=== PATIENT | male | born 1945 | race Caucasian/White ===

== ENCOUNTER → 2018-05-04 13:30 | Outpatient (CLI) | payer MEDICARE, OTHER, SELFPAY ==
[2018-05-07 16:55] LABS: PSA, Free 0.42 ng/mL; PSA, Free % 9.5 % (.); PSA, Total Ultrasensitive 4.4 ng/mL (0.0-4.0)
== END ==
PROVIDERS: Family Provider Internal Medicine; PCP Internal Medicine; Visit Provider Nurse Practitioner Adult Health
DX: R97.20 Elevated prostate specific antigen [PSA] (principal)
CPT/HCPCS: 36415; 84153; 84154

== ENCOUNTER → 2019-02-25 11:55 | Outpatient (CLI) | payer MEDICARE, OTHER, SELFPAY ==
[2019-02-25 12:21] LABS: Bacteria 0 SEEN /hpf (None Seen); Mucous, Urine 0 SEEN /hpf (<or=2+); Red Blood Cells-Urine 0 SEEN /hpf (0-5); White Blood Cells 0 SEEN /hpf (0-5)
[2019-02-25 12:36] LABS: Color, Urine Straw (Yellow); Glucose, Dipstick 250 mg/dl (Normal); Ketone-Dipstick Negative (Negative); Leukocyte Esterase-Dipstick Negative /ul (Negative); Nitrite-Dipstick Negative (Negative); Occult Blood-Urine Negative /ul (Negative); Protein-Dipstick Negative (Negative); Specific Gravity, Urine 1.005 (1.002-1.030); Urine Bilirubin Dipstick Negative (Negative); Urine Clarity Sl. Cloudy (Clear); Urine Urobilinogen Normal (Normal)
[2019-02-25 12:45] LABS: Absolute Lymphocyte Count 2.08 X10^3/ul (0.83-4.51); Absolute Neutrophil Count 3.5 X10^3/uL (2.0-7.7); Basophil# 0.07 X10^3/uL; Basophil% 1.1 % (0-1); Eosinophil# 0.16 X10^3/uL; Eosinophils% 2.5 % (0-5); Hematocrit 44.5 % (40-54); Hemoglobin 14.5 g/dl (13.0-16.5); Lymphocyte # 2.08 X10^3/ul (4.0); Lymphocyte % 32.3 % (19-41); Mean Corp Hgb Conc 32.6 g/gl (32-36); Mean Corpuscular Hgb 31.4 pg (27.0-32.0); Mean Corpuscular Volume 96.3 fL (80-94); Mean Platelet Vol. 10.1 fl (6.2-12.0); Monocyte# 0.62 X10^3/uL; Monocyte% 9.6 % (0-10); Neutrophil # 3.49 X10^3/uL (2.7-7.7); Neutrophil % 54.3 % (47-70); Platelet Count 247 K/mm3 (150-450); RBC Distribution Width CV 13.1 % (11.6-14.6); RBC Distribution Width SD 45.4 fl (35.1-43.9); Red Blood Count 4.62 M/mm3 (4.6-6.2); White Blood Count 6.4 K/mm3 (4.4-11.0)
[2019-02-25 12:49] LABS: POSITIVE COUNT NO; POSITIVE DIFFERENTIAL NO; POSITIVE MORPHOLOGY NO
[2019-02-25 12:56] LABS: Squamous Epithelial Cells - UA 0-5 SEEN /hpf (0-5)
[2019-02-25 12:58] LABS: Microalbumin,Random Urine 7.5 mg/L (NO RANGE EST.); Microalbumin:Creatinine Ratio 33.2 mg/g CRE (<30 mg/g CRE)
[2019-02-25 13:17] LABS: ALB/GLOB Ratio 1.1 RATIO (0.9-2.4); AST(SGOT) 20 U/L (15-37); Alanine Aminotransfer ALT/SGPT 27 U/L (16-61); Albumin, Serum 3.9 g/dL (3.2-5.0); Alkaline Phosphatase 35 U/L (45-117); Anion Gap 6 (5-15); BUN 24 mg/dL (7-18); BUN/Creat Ratio 20.2 RATIO (10-20); Calcium,Total 8.7 mg/dL (8.5-10.1); Chloride 101 mmol/L (98-107); Creatinine, Serum 1.19 mg/dL (0.70-1.30); EST Glomerular Filtration Rate 63 mL/min (>60); Est Glom Filt Rate - Afr Amer 77 mL/min (>60); Globulin 3.4 g/dL (2.2-4.2); Glucose 93 mg/dL (74-106); PSA,Total - Annual Screen 6.32 ng/mL (0.00-4.00); Potassium 4.2 mmol/L (3.5-5.1); Protein, Total 7.3 g/dL (6.4-8.2); Sodium Level 136 mmol/L (136-145); Thyroid Stim Hormone (TSH) 2.93 uIU/mL (0.358-3.74)
[2019-02-26 14:35] LABS: PSA, Free 0.49 ng/mL; PSA, Free % 8.2 % (.)
[2019-02-26 16:06] LABS: CHOLESTEROL TOTAL 222 mg/dL (100-199); HDL-C 49 mg/dL (>39); HDL-P TOTAL 44.4 umol/L (>=30.5); SMALL LDL-P 855 nmol/L (<=527); TRIGLYCERIDES 189 mg/dL (0-149)
[2019-02-27 09:52] LABS: INSULIN RESISTANCE SCORE 66 (<=45); LDL SIZE 20.3 nm (>20.5); LDL-C 135 mg/dL (0-99); LDL-P 1650 nmol/L (<1000)
== END ==
PROVIDERS: Family Provider Internal Medicine; PCP Internal Medicine; Referring Provider Internal Medicine; Visit Provider Internal Medicine
DX: E11.9 Type 2 diabetes mellitus without complications (principal); R97.20 Elevated prostate specific antigen [PSA]; Z12.5 Encounter for screening for malignant neoplasm of prostate
CPT/HCPCS: 36415; 80053; 80061; 81001; 82043; 82570; 83704; 84153; 84154; 84443; 85025; G0103

== ENCOUNTER → 2019-05-23 15:06 | Outpatient (CLI) | payer MEDICARE, OTHER, SELFPAY ==
--- NOTE | 2019-05-23 | IMM_PTH ---
PATIENT: HAY JOHNSON LOC: [facility] U#:[id number] AGE/SX: 80/M ROOM: RE05/23/[address]: Dr. Cesar Hicks MD : 1945 BED: DIS: SPEC #: [id number] RECD: 05/25/19 12:54 STATUS: CASH REQ #: [id number] RON: 05/23/19 00:[address]: Cesar Hicks DEPT: IMMUNOHISTOCHEMISTRY RECD BY: Catarina Mcduffie ENTERED: 05/25/19 12:56 SP TYPE: IMMUNO OTHR DR: Dr. Amanda Cardoza DO Tissues: A - PROSTATE RIGHT B - PROSTATE RIGHT C - PROSTATE RIGHT E - PROSTATE LEFT F - PROSTATE LEFT Procedures: 34BE12 (add) P40 (add) 34BE12 (initial) PHYSICIAN & INSTITUTION [place] [address] SPECIMEN INFORMATION: Tissue Source: A - Right apex, B - Right mid, C - Right base, E - Left mid, F - Left base Clinical Info: Elevated PSA Specimen Number: [id number] A, B, C, E & F CPT code: 99022, 55261 x9 METHODOLOGY: Deparaffinized sections of prefer/formalin-fixed tissue or PAP/DQ stained slides are incubated with monoclonal/polyclonal antibodies/oligonucleotide probes. Localization is made via biotin free immunoperoxidase method. Appropriate controls are performed and reacted as expected. Results on target cell population are indicated in the following table: RESULTS: ANTIBODY / CLONE RESULT Block A P40 (BC28) positive 34BE12 (34BE12) positive Block B P40 (BC28) negative 34BE12 (34BE12) negative Block C P40 (BC28) negative 34BE12 (34BE12) negaitive Block E P40 (BC28) positive 34BE12 (34BE12) positive Block F P40 (BC28) negative 34BE12 (34BE12) negative These tests were developed and their performance characteristics determined by [facility]. They may not have been cleared or approved by the U.S. Food and Drug Administration. The FDA has determined that such clearance or approval is not necessary. INTERPRETATION: A. Right prostate, apex, core biopsy: Benign prostatic tissue. B. Right prostate, mid, core biopsy: Adenocarcinoma. C. Right prostate, base, core biopsy: Adenocarcinoma. E. Left prostate, mid, core biopsy: Focal high-grade prostatic intraepithelial neoplasia (HGPIN). F. Left prostate, base, core biopsy: Adenocarcinoma. AM:andrzej 05/27/19
--- NOTE | 2019-05-23 08:00 | PROSBIL_PTH ---
PATIENT: HAY JOHNSON LOC: [facility] U#:[id number] AGE/SX: 80/M ROOM: RE05/23/[address]: Dr. Cesar Hicks MD : 1945 BED: DIS: SPEC #: [id number] RECD: 05/23/19 14:54 STATUS: CASH KRISSY #: [id number] RON: 05/23/19 08:[address]: Cesar Hicks DEPT: SURGICAL PATHOLOGY RECD BY: Venkatesh Villanueva ENTERED: 05/24/19 09:44 SP TYPE: PROST BX FREDDIE DR: Dr. Amanda Cardoza DO Tissues: A - PROSTATE RIGHT B - PROSTATE RIGHT C - PROSTATE RIGHT D - PROSTATE LEFT E - PROSTATE LEFT F - PROSTATE LEFT Procedures: PROSTATE BX HEADER OPERATION: Prostate biopsy PRE-OP DIAGNOSIS: Elevated PSA TISSUE SUBMITTED: A - Right apex, B - Right mid, C - Right base, D - Left apex, E - Left mid, F - Left base MICROSCOPIC DIAGNOSIS A. Right prostate, apex, core biopsy: Benign prostatic tissue. B. Right prostate, mid, core biopsy: Adenocarcinoma: [place] grade: 6 (3+3) Cores involved: 2 out of 2 Tissue involved: 5% Greatest tumor length: 1.5 mm Perineural invasion: Positive C. Right prostate, base, core biopsy: Adenocarcinoma: [place] grade: 7 (3+4) Cores involved: 2 out of 2 Tissue involved: 35% Greatest tumor length: 6 mm (discontinuous) Perineural invasion: Positive D. Left prostate, apex, core biopsy: Mild chronic inflammation. E. Left prostate, mid, core biopsy: Focal high-grade prostatic intraepithelial neoplasia (HGPIN). F. Left prostate, base, core biopsy: Adenocarcinoma: [place] grade: 7 (3+4) Cores involved: 2 out of 2 Tissue involved: 45% Greatest tumor length: 7 mm (discontinuous) Perineural invasion: Positive AM:andrzej 05/25/19 COMMENT A, B, C, E & F - Immunohistochemistry ([id number]) supports the above diagnosis. Case has been reviewed in consultation with Dr. Hu who concurs with the above diagnosis. IDC:SJ MICROSCOPIC DESCRIPTION Slides are reviewed. GROSS DESCRIPTION A - Received is one container designated prostate, right apex. The specimen consists of one elongated fragment of light valle-white soft tissue measuring 1.3 cm in length and 0.1 cm in diameter. The specimen is totally submitted in one cassette. B - Received is one container designated prostate, right mid. The specimen consists of two elongated fragments of light vlale-white soft tissue each measuring 1.3 cm in length and 0.1 cm in diameter. The specimen is totally submitted in one cassette. C - Received is one container designated prostate, right base. The specimen consists of two elongated fragments of light valle-white soft tissue measuring 1.5 and 1.7 cm in length and 0.1 cm in diameter. The specimen is totally submitted in one cassette. D - Received is one container designated prostate, left apex. The specimen consists of one elongated fragment of light valle-white soft tissue measuring 1 cm in length and 0.1 cm in diameter. The specimen is totally submitted in one cassette. E - Received is one container designated prostate, left mid. The specimen consists of two elongated fragments of light valle-white soft tissue each measuring 0.5 cm in length and 0.1 cm in diameter. The specimen is totally submitted in one cassette. F - Received is one container designated prostate, left base. The specimen consists of two elongated fragments of light valle-white soft tissue measuring 1 and 1.5 cm in length and 0.1 cm in diameter. The specimen is totally submitted in one cassette. / SJ:rg 05/24/19 TC:0 CPT: G0146
== END ==
PROVIDERS: Family Provider Internal Medicine; PCP Internal Medicine; Referring Provider Urology; Visit Provider Urology
DX: R97.20 Elevated prostate specific antigen [PSA] (principal)
CPT/HCPCS: 88305; 88341; 88342; G0416

== ENCOUNTER 2019-08-05 05:46 | Day surgery (SDC) | payer MEDICARE, OTHER, SELFPAY ==
[2019-06-28 15:08] VITALS: BMI 28.3
[2019-08-05 06:12] VITALS: BP 121/50; PULSE 67; RESP 16; TEMP 36.4; O2SAT 99; BMI 27.1
[2019-08-05] MEDS: Lactated Ringers 1,000 ML 100 ML IV (06:30)
[2019-08-05] MEDS: Cefazolin 2 GM in 0.9% Normal Saline 100 ML IV (07:27)
[2019-08-05 08:14] VITALS: BP 119/74; BP 121/50; PULSE 78; RESP 16; TEMP 36.8; O2SAT 92
--- NOTE | 2019-08-05 08:15 | PCM.DC.URO ---
Discharge Diet: Light diet - advance as tolerated Discharge Activity: Return to Normal Activity Call your doctor if your incision/area has: Continuous Slow Oozing, Sudden Increased Bleeding, Increased Pain/ Swelling, Increased Redness Call your doctor if you observe: Fever of 101 or Higher Allergies/Adverse Reactions: Allergies No Known Allergies Allergy (Unverified 08/05/19 06:11) Medications to take at Discharge Amlodipine/Valsartan [Exforge 10-320 MG Tablet] 1 tab PO DAILY 06/22/19 Calcium 600-Vit D3 200 Tablet 1 tab PO DAILY 06/22/19 Complete Multi Tablet 1 tab PO DAILY 06/22/19 [place]-3 Fatty Acids/Fish Oil [Fish Oil 1,000 mg Capsule] 1,000 mg PO DAILY 06/22/19 Ubidecarenone [Coenzyme Q10] 100 mg PO DAILY 06/22/19 Primary Care Physician: Amanda Cardoza DO [Primary Care Provider] - Test Results: Test results from this visit will be discussed in further detail at your follow-up appointment, if applicable. Please Follow Up With: Cesar Hicks MD
--- NOTE | 2019-08-05 08:16 | PCM.OPRPT ---
Report of Operation Date of Procedure: 08/05/19 Pre-Operative Diagnosis: Prostate cancer Post-Operative Diagnosis: The same Surgery/Procedure Performed:: Transrectal ultrasound-guided placement of fiducial gold markers x3, transrectal ultrasound-guided placement of spacer organ at risk hydrogel. Description of Surgical Findings:: 74-year-old male with prostate cancer who is elected to undergo radiation therapy, radiation oncologist has recommended that I place markers for radiation treatment and planning and also placement of a spacer gel between the prostate and the rectum. We talked to the patient regarding the procedure how would stun expectations afterwards and expected outcomes and complications were discussed. 74-year-old male was taken back to the operating room after smooth induction of anesthesia he was placed in supine position he was then placed in dorsolithotomy position, the penis perineum and perineal area were prepped and draped in usual sterile fashion, I then placed a biplanar ultrasound probe into the rectum and performed ultrasonography of the prostate, I then prepared the first marker and advanced into the perineum in the right lateral edge of the prostate and the marker was deployed, this was done using ultrasound guidance using bipolar planar and transverse ultrasound. I then placed tumor markers mid prostate and left base of the prostate once 3 markers were placed then we performed ultrasonography looking at the prostate again identified the prostate anatomy identified tenotomies fascia identified the rectum. I then prepared the spacer hydrogel solution in the back table following the ambulance driver paramedic's instructions. We then used the needle with the bevel up, advancing into the space of the fascia below the prostate above the rectum once this was located I injected up off of normal saline and had a nice distention. This confirm my location between the rectum and the prostate we then went to sagittal view and then the spacer gel was injected between the spacer rectum and the prostate this was injected slowly over the course of 15 seconds had very nice separation between the prostate and the rectum with this injection. I then pulled out the whole needle and the peritoneum was then cleaned the ultrasound probe was removed and the patient was taken back to PACU in good condition he will then proceed with radiation therapy as planned. Type of Anesthesia:: General - Admit VTE Documentation VTE Present on Admission: No VTE Mechan Device Prophylaxis: SCD's
[2019-08-05 08:25] VITALS: BP 121/50; BP 134/73; PULSE 67; RESP 16; O2SAT 92
[2019-08-05 08:30] VITALS: BP 121/50; BP 135/66; PULSE 69; RESP 16; O2SAT 92
[2019-08-05 08:40] VITALS: BP 121/50; BP 134/71; PULSE 64; RESP 16; TEMP 37; O2SAT 93
[2019-08-05] MEDS: Lactated Ringers 1,000 ML 75 ML IV (08:41)
[2019-08-05 09:34] VITALS: BP 119/62; BP 121/50; PULSE 54; RESP 16; TEMP 36.3; O2SAT 94
== END 2019-08-05 09:47 | disposition home or self-care (01) ==
LOC: SDC 05:46 → AC 05:48
PROVIDERS: Family Provider Internal Medicine; PCP Internal Medicine; Referring Provider Urology; Visit Provider Urology
PROC: (CPT 55874; principal; 2019-08-05 07:15)
DX: C61 Malignant neoplasm of prostate (principal); I10 Essential (primary) hypertension; R97.20 Elevated prostate specific antigen [PSA]; Z87.891 Personal history of nicotine dependence
CPT/HCPCS: 10035; 10036 ×2; J7120; J2405

== ENCOUNTER → 2019-08-31 15:50 | Outpatient (CLI) | payer MEDICARE, OTHER, SELFPAY ==
[2019-06-28 15:08] VITALS: BMI 28.3
[2019-08-05 06:12] VITALS: BMI 27.1
--- NOTE | 2019-08-31 16:01 | MRI_ITS ---
STUDY: MR PELVIS WITHOUT CONTRAST REASON FOR EXAM: Male, 74 years old. Prostate cancer, planning for radiation therapy TECHNIQUE: Standardized fat and water weighted pulse sequences were obtained in all 3 orthogonal planes. COMPARISON: Radiation planning CT from the same day. FINDINGS: Normal urinary bladder. Normal visualized small intestine. Normal visualized colon. Normal visualized pelvic arteries. Normal osseous structures. No bone marrow edema. Normal abdominal wall. Trace amount of fluid in the dependent portion of the pelvis. Small seminal vesicle cysts are identified. Oval-shaped area of increased T2 signal intensity in the right side of the prostate gland (transitional zone) likely related to prior biopsy. Punctate signal dropout of the prostate gland correlates to iatrogenic metallic foci evident on CT (same day). No periprostatic adenopathy/mass. No pelvic sidewall adenopathy. MRI/Pelvis (Routine) IMPRESSION: 1. No pelvic sidewall adenopathy/mass. No bone marrow edema. 2. Minimal pelvic free fluid. 3. Probable postbiopsy changes of the right side of the prostate gland. Electronically Signed: Lokesh Casanova MD ([place]) at 12:26 EDT , Service support ,
== END ==
PROVIDERS: Family Provider Internal Medicine; PCP Internal Medicine; Referring Provider Student in an Organized Health Care Education/Training Program; Visit Provider Student in an Organized Health Care Education/Training Program
DX: C61 Malignant neoplasm of prostate (principal)
CPT/HCPCS: 72195; 77014; 77290

== ENCOUNTER → 2019-10-24 10:24 | Outpatient (CLI) | payer MEDICARE, OTHER, SELFPAY ==
[2019-06-28 15:08] VITALS: BMI 28.3
[2019-10-06 09:52] VITALS: BMI 27.1
--- NOTE | 2019-10-24 15:26 | MRI_ITS ---
STUDY: MRA NECK WITH AND WITHOUT CONTRAST REASON FOR EXAM: Male, 74 years old. TECHNIQUE: 3-D mgzc-vy-lllksw (TOF) imaging was performed in an 1.5 T MRI scanner. IV Dotarem 15 was administered for the contrast enhanced images. COMPARISON: None. FINDINGS: The aorta has a normal branching pattern. Right brachiocephalic, right subclavian, right common carotid, left common carotid and left subclavian arteries are patent. Right vertebral artery is dominant and arises from the subclavian artery and is patent throughout. The origin of the left vertebral artery is not seen. Left vertebral artery is smaller but patent throughout. Intradural vertebral arteries are patent with the right dominant and left smaller. Bilateral internal and external carotid arteries are patent. There is no cervical aneurysm. MRI/MRA Neck WITH and W/O Contrast IMPRESSION: Normal cervical arteries. Electronically Signed: Brett Menchaca, at 17:02 EST Tel , Service support ,
--- NOTE | 2019-10-24 15:26 | MRI_ITS ---
STUDY: MRA OF THE HEAD WITHOUT CONTRAST REASON FOR EXAM: Male, 74 years old. Brain aneurysm screening TECHNIQUE: 3-D riwr-qm-opmljw (TOF) imaging was performed with MIPs. The study was performed unenhanced. COMPARISON: None. FINDINGS: Bilateral base of skull carotids, bifurcations, anterior and middle cerebral arteries and proximal branches are patent. Posterior communicating arteries are not well seen Posterior cerebral arteries and superior cerebellar arteries and proximal branches are patent. Vertebral arteries, basilar arteries are patent. MRI/MRA Head ONLY without Contrast IMPRESSION: 1. Unremarkable [place] and proximal branches. Electronically Signed: Brett Menchaca, at 16:41 EST Tel , Service support ,
== END ==
PROVIDERS: Family Provider Internal Medicine; PCP Internal Medicine; Referring Provider Internal Medicine; Visit Provider Internal Medicine
DX: Z82.49 Family history of ischemic heart disease and other diseases of the circulatory system (principal)
CPT/HCPCS: 70544; 70549; A9575

== ENCOUNTER → 2019-10-24 10:28 | Outpatient (CLI) | payer MEDICARE, OTHER, SELFPAY ==
[2019-06-28 15:08] VITALS: BMI 28.3
[2019-10-06 09:52] VITALS: BMI 27.1
[2019-10-24 10:39] LABS: Bacteria 0 SEEN /hpf (None Seen); Mucous, Urine 0 SEEN /hpf (<or=2+); Red Blood Cells-Urine 0 SEEN /hpf (0-5); White Blood Cells 0 SEEN /hpf (0-5)
[2019-10-24 11:18] LABS: Color, Urine Yellow (Yellow); Glucose, Dipstick 250 mg/dl (Normal); Ketone-Dipstick Negative (Negative); Leukocyte Esterase-Dipstick Negative /ul (Negative); Nitrite-Dipstick Negative (Negative); Occult Blood-Urine Negative /ul (Negative); Protein-Dipstick Negative (Negative); Urine Bilirubin Dipstick Negative (Negative); Urine Clarity Clear (Clear); Urine Urobilinogen Normal (Normal)
[2019-10-24 11:20] LABS: Absolute Lymphocyte Count 0.99 X10^3/uL (0.83-4.51); Absolute Neutrophil Count 2.7 X10^3/uL (2.0-7.7); Basophil# 0.05 X10^3/uL; Basophil% 1.1 % (0-1); Eosinophil# 0.24 X10^3/uL; Eosinophils% 5.1 % (0-5); Hematocrit 40.1 % (40-54); Hemoglobin 12.9 g/dL (13.0-16.5); Lymphocyte # 0.99 X10^3/ul (4.0); Lymphocyte % 21.2 % (19-41); Mean Corp Hgb Conc 32.2 g/dL (32-36); Mean Corpuscular Hgb 31.5 pg (27.0-32.0); Mean Corpuscular Volume 97.8 fL (80-94); Mean Platelet Vol. 9.7 fl (6.2-12.0); Monocyte# 0.69 X10^3/uL; Monocyte% 14.8 % (0-10); NRBC Flagged by Analyzer 0 % (0-5); Neutrophil # 2.69 X10^3/uL (2.7-7.7); Neutrophil % 57.6 % (47-70); Platelet Count 227 K/mm3 (150-450); RBC Distribution Width CV 13.7 % (11.6-14.6); RBC Distribution Width SD 49.7 fl (35.1-43.9); White Blood Count 4.7 K/mm3 (4.4-11.0)
[2019-10-24 11:24] LABS: Squamous Epithelial Cells - UA 0-5 SEEN /hpf (0-5)
[2019-10-24 11:45] LABS: Microalbumin,Random Urine 6.4 mg/L (NO RANGE EST.); Microalbumin:Creatinine Ratio 8.8 mg/g CRE (<30 mg/g CRE)
[2019-10-24 11:54] LABS: ALB/GLOB Ratio 1.1 RATIO (0.9-2.4); AST(SGOT) 24 U/L (15-37); Alanine Aminotransfer ALT/SGPT 28 U/L (16-61); Albumin, Serum 3.6 g/dL (3.2-5.0); Alkaline Phosphatase 41 U/L (45-117); Anion Gap 7 (5-15); BUN 21 mg/dL (7-18); BUN/Creat Ratio 18.8 RATIO (10-20); Calcium,Total 8.9 mg/dL (8.5-10.1); Chloride 104 mmol/L (98-107); Creatinine, Serum 1.12 mg/dL (0.70-1.30); EST Glomerular Filtration Rate 68 mL/min (>60); Est Glom Filt Rate - Afr Amer 82 mL/min (>60); Globulin 3.3 g/dL (2.2-4.2); Glucose 102 mg/dL (74-106); Potassium 4.3 mmol/L (3.5-5.1); Protein, Total 6.9 g/dL (6.4-8.2); Sodium Level 139 mmol/L (136-145); Thyroid Stim Hormone (TSH) 3.01 uIU/mL (0.358-3.74)
[2019-10-25 14:07] LABS: CHOLESTEROL TOTAL 247 mg/dL (100-199); HDL-C 60 mg/dL (>39); HDL-P TOTAL 47.4 umol/L (>=30.5); SMALL LDL-P 701 nmol/L (<=527); TRIGLYCERIDES 205 mg/dL (0-149)
[2019-10-26 13:50] LABS: INSULIN RESISTANCE SCORE 60 (<=45); LDL SIZE 20.8 nm (>20.5); LDL-C 146 mg/dL (0-99); LDL-P 1582 nmol/L (<1000)
== END ==
PROVIDERS: Family Provider Internal Medicine; PCP Internal Medicine; Referring Provider Internal Medicine; Visit Provider Internal Medicine
DX: E11.9 Type 2 diabetes mellitus without complications (principal); E78.00 Pure hypercholesterolemia, unspecified
CPT/HCPCS: 36415; 80053; 80061; 81001; 82043; 82570; 83704; 84443; 85025

== ENCOUNTER → 2020-04-17 13:29 | Outpatient (CLI) | payer MEDICARE, OTHER, SELFPAY ==
[2019-06-28 15:08] VITALS: BMI 28.3
[2019-10-06 09:52] VITALS: BMI 27.1
[2020-04-17 14:23] LABS: PSA,Total- Diagnostic 0.06 ng/mL (0.0-4.0)
== END ==
PROVIDERS: PCP Internal Medicine; Referring Provider Urology; Visit Provider Urology
DX: C61 Malignant neoplasm of prostate (principal)
CPT/HCPCS: 36415; 84153

== ENCOUNTER → 2020-09-19 12:19 | Outpatient (CLI) | payer MEDICARE, OTHER, SELFPAY ==
[2019-06-28 15:08] VITALS: BMI 28.3
[2019-10-06 09:52] VITALS: BMI 27.1
[2020-09-19 12:26] LABS: Bacteria 0 SEEN /hpf (None Seen); Mucous, Urine 0 SEEN /hpf (<or=2+); Red Blood Cells-Urine 0 SEEN /hpf (0-5); Squamous Epithelial Cells - UA 0 SEEN /hpf (0-5); White Blood Cells 0 SEEN /hpf (0-5)
[2020-09-19 13:34] LABS: Color, Urine Straw (Yellow); Glucose, Dipstick 250 mg/dl (Normal); Ketone-Dipstick Negative (Negative); Leukocyte Esterase-Dipstick Negative /ul (Negative); Nitrite-Dipstick Negative (Negative); Occult Blood-Urine Negative /ul (Negative); Protein-Dipstick Negative (Negative); Specific Gravity, Urine 1.005 (1.002-1.030); Urine Bilirubin Dipstick Negative (Negative); Urine Clarity Clear (Clear); Urine Urobilinogen Normal (Normal)
[2020-09-19 13:43] LABS: Absolute Lymphocyte Count 1.32 X10^3/uL (0.83-4.51); Absolute Neutrophil Count 2.5 X10^3/uL (2.0-7.7); Basophil# 0.06 X10^3/uL; Basophil% 1.3 % (0-1); Eosinophil# 0.15 X10^3/uL; Eosinophils% 3.2 % (0-5); Hematocrit 41.2 % (40-54); Hemoglobin 13.1 g/dL (13.0-16.5); Lymphocyte # 1.32 X10^3/ul (4.0); Lymphocyte % 28.2 % (19-41); Mean Corp Hgb Conc 31.8 g/dL (32-36); Mean Corpuscular Hgb 30.8 pg (27.0-32.0); Mean Corpuscular Volume 96.7 fL (80-94); Mean Platelet Vol. 9.7 fl (6.2-12.0); Monocyte# 0.62 X10^3/uL; Monocyte% 13.2 % (0-10); NRBC Flagged by Analyzer 0 % (0-5); Neutrophil # 2.53 X10^3/uL (2.7-7.7); Neutrophil % 54.1 % (47-70); Platelet Count 263 K/mm3 (150-450); RBC Distribution Width CV 13.4 % (11.6-14.6); RBC Distribution Width SD 47.8 fl (35.1-43.9); Red Blood Count 4.26 M/mm3 (4.6-6.2); White Blood Count 4.7 K/mm3 (4.4-11.0)
[2020-09-19 14:02] LABS: Microalbumin,Random Urine < 5.0 mg/L (NO RANGE EST.)
[2020-09-19 14:06] LABS: Hemoglobin A1c 5.8 % (3.8-5.6)
[2020-09-19 14:18] LABS: AST(SGOT) 16 U/L (15-37); Alanine Aminotransfer ALT/SGPT 21 U/L (16-61); Albumin, Serum 3.7 g/dL (3.2-5.0); Alkaline Phosphatase 35 U/L (45-117); Anion Gap 4 (5-15); BUN 21 mg/dL (7-18); BUN/Creat Ratio 22.3 RATIO (10-20); Chloride 102 mmol/L (98-107); Cholesterol 204 mg/dL (200); Creatinine, Serum 0.94 mg/dL (0.70-1.30); EST Glomerular Filtration Rate 82 mL/min (>60); Est Glom Filt Rate - Afr Amer 100 mL/min (>60); Globulin 3.6 g/dL (2.2-4.2); Glucose 96 mg/dL (74-106); High Density Lipoprotein 71 mg/dL; PSA,Total- Diagnostic 0.07 ng/mL (0.0-4.0); Potassium 4.2 mmol/L (3.5-5.1); Protein, Total 7.3 g/dL (6.4-8.2); Sodium Level 137 mmol/L (136-145); Thyroid Stim Hormone (TSH) 2.73 uIU/mL (0.358-3.74); Triglycerides 86 mg/dL; Very Low Density Lipoprotein 17 mg/dL (5-40)
== END ==
PROVIDERS: PCP Internal Medicine; Referring Provider Internal Medicine; Visit Provider Internal Medicine
DX: I10 Essential (primary) hypertension (principal); E11.9 Type 2 diabetes mellitus without complications; C61 Malignant neoplasm of prostate
CPT/HCPCS: 36415; 80053; 80061; 81001; 82043; 82570; 83036; 84153; 84443; 85025

== ENCOUNTER → 2021-03-29 10:04 | Outpatient (CLI) | payer MEDICARE, OTHER, SELFPAY ==
[2019-06-28 15:08] VITALS: BMI 28.3
[2019-10-06 09:52] VITALS: BMI 27.1
[2021-03-29 10:41] LABS: Absolute Lymphocyte Count 1.25 X10^3/uL (0.83-4.51); Absolute Neutrophil Count 2.3 X10^3/uL (2.0-7.7); Basophil# 0.06 X10^3/uL; Basophil% 1.4 % (0-1); Eosinophil# 0.14 X10^3/uL; Eosinophils% 3.2 % (0-5); Hematocrit 41.3 % (40-54); Hemoglobin 12.9 g/dL (13.0-16.5); Lymphocyte # 1.25 X10^3/ul (0.83-4.51); Lymphocyte % 28.5 % (19-41); Mean Corp Hgb Conc 31.2 g/dL (32-36); Mean Corpuscular Hgb 29.9 pg (27.0-32.0); Mean Corpuscular Volume 95.8 fL (80-94); Mean Platelet Vol. 9.8 fl (6.2-12.0); Monocyte# 0.62 X10^3/uL; Monocyte% 14.1 % (0-10); NRBC Flagged by Analyzer 0 % (0-5); Neutrophil # 2.31 X10^3/uL (2.7-7.7); Neutrophil % 52.6 % (47-70); Platelet Count 262 K/mm3 (150-450); RBC Distribution Width CV 12.7 % (11.6-14.6); RBC Distribution Width SD 45.6 fl (35.1-43.9); Red Blood Count 4.31 M/mm3 (4.6-6.2); White Blood Count 4.4 K/mm3 (4.4-11.0)
[2021-03-29 11:05] LABS: Vitamin D,25 Hydroxy 48.5 ng/mL
[2021-03-29 11:29] LABS: AST(SGOT) 17 U/L (15-37); Alanine Aminotransfer ALT/SGPT 22 U/L (16-61); Albumin, Serum 3.6 g/dL (3.2-5.0); Alkaline Phosphatase 37 U/L (45-117); Anion Gap 4 (5-15); BUN 19 mg/dL (7-18); BUN/Creat Ratio 18.8 RATIO (10-20); Calcium,Total 8.9 mg/dL (8.5-10.1); Chloride 99 mmol/L (98-107); Cholesterol 213 mg/dL (200); Creatinine, Serum 1.01 mg/dL (0.70-1.30); EST Glomerular Filtration Rate 76 mL/min (>60); Est Glom Filt Rate - Afr Amer 92 mL/min (>60); Globulin 3.7 g/dL (2.2-4.2); Glucose 101 mg/dL (74-106); High Density Lipoprotein 64 mg/dL; PSA,Total- Diagnostic 0.04 ng/mL (0.0-4.0); Potassium 3.9 mmol/L (3.5-5.1); Protein, Total 7.3 g/dL (6.4-8.2); Sodium Level 135 mmol/L (136-145); Thyroid Stim Hormone (TSH) 3.39 uIU/mL (0.358-3.74); Triglycerides 140 mg/dL; Very Low Density Lipoprotein 28 mg/dL (5-40)
== END ==
PROVIDERS: PCP Internal Medicine; Referring Provider Internal Medicine; Visit Provider Internal Medicine
DX: Z01.83 Encounter for blood typing (principal); E78.00 Pure hypercholesterolemia, unspecified; Z13.29 Encounter for screening for other suspected endocrine disorder; E11.9 Type 2 diabetes mellitus without complications; C61 Malignant neoplasm of prostate; Z13.21 Encounter for screening for nutritional disorder
CPT/HCPCS: 36415; 80053; 80061; 82306; 84153; 84443; 85025; 86900; 86901

== ENCOUNTER → 2021-11-04 13:38 | Outpatient (CLI) | payer MEDICARE, OTHER, SELFPAY ==
[2019-06-28 15:08] VITALS: BMI 28.3
[2021-11-04 14:59] LABS: PSA,Total - Annual Screen 0.06 ng/mL (0.00-4.00)
== END ==
PROVIDERS: PCP Internal Medicine; Visit Provider Urology
DX: C61 Malignant neoplasm of prostate (principal)
CPT/HCPCS: 36415; 84153; G0103

== ENCOUNTER → 2022-11-05 | Outpatient (CLI) | payer MEDICARE, OTHER, SELFPAY ==
[2019-06-28 15:08] VITALS: BMI 28.3
[2022-11-05 13:59] LABS: PSA,Total - Annual Screen 0.05 ng/mL (0.00-4.00)
== END | disposition home or self-care (01) ==
LOC: LAB 13:11
PROVIDERS: PCP Internal Medicine; Referring Provider Urology; Visit Provider Urology
DX: Z12.5 Encounter for screening for malignant neoplasm of prostate (principal)
CPT/HCPCS: 36415; 84153; G0103

== ENCOUNTER → 2023-10-26 | Outpatient (CLI) | payer MEDICARE, OTHER, SELFPAY ==
[2019-06-28 15:08] VITALS: BMI 28.3
[2023-10-26 13:00] LABS: Bacteria 0 SEEN /hpf (None Seen); Mucous, Urine 0 SEEN /hpf (<or=2+); Red Blood Cells-Urine 0 SEEN /hpf (0-5); Squamous Epithelial Cells - UA 0 SEEN /hpf (0-5); White Blood Cells 0 SEEN /hpf (0-5)
[2023-10-26 13:44] LABS: Absolute Lymphocyte Count 1.73 X10^3/uL (0.83-4.51); Absolute Neutrophil Count 2.8 X10^3/uL (2.0-7.7); Basophil# 0.06 X10^3/uL; Basophil% 1.1 % (0-1); Eosinophil# 0.15 X10^3/uL; Eosinophils% 2.7 % (0-5); Hematocrit 41.6 % (40-54); Hemoglobin 13.2 g/dL (13.0-16.5); Lymphocyte # 1.73 X10^3/ul (0.83-4.51); Lymphocyte % 31.7 % (19-41); Mean Corp Hgb Conc 31.7 g/dL (32-36); Mean Corpuscular Hgb 31.3 pg (27.0-32.0); Mean Corpuscular Volume 98.6 fL (80-94); Mean Platelet Vol. 9.9 fl (6.2-12.0); Monocyte# 0.72 X10^3/uL; Monocyte% 13.2 % (0-10); NRBC Flagged by Analyzer 0 % (0-5); Neutrophil # 2.78 X10^3/uL (2.7-7.7); Neutrophil % 50.9 % (47-70); Platelet Count 227 K/mm3 (150-450); RBC Distribution Width CV 13.4 % (11.6-14.6); Red Blood Count 4.22 M/mm3 (4.6-6.2); White Blood Count 5.5 K/mm3 (4.4-11.0)
[2023-10-26 13:55] LABS: Color, Urine Yellow (Yellow); Glucose, Dipstick 250 mg/dl (Normal); Ketone-Dipstick Negative (Negative); Leukocyte Esterase-Dipstick Negative /ul (Negative); Nitrite-Dipstick Negative (Negative); Occult Blood-Urine Negative /ul (Negative); Protein-Dipstick Negative (Negative); Specific Gravity, Urine 1.015 (1.002-1.030); Urine Bilirubin Dipstick Negative (Negative); Urine Clarity Clear (Clear); Urine Urobilinogen Normal (Normal); Urine pH 6.5 (5.0 - 8.0)
[2023-10-26 14:00] LABS: Microalbumin,Random Urine 8.3 mg/L (NO RANGE EST.); Microalbumin:Creatinine Ratio 7.8 mg/g CRE (<30 mg/g CRE)
[2023-10-26 14:16] LABS: AST(SGOT) 17 U/L (15-37); Alanine Aminotransfer ALT/SGPT 22 U/L (16-61); Albumin, Serum 3.5 g/dL (3.2-5.0); Alkaline Phosphatase 39 U/L (45-117); Anion Gap 6 (5-15); BUN 27 mg/dL (7-18); BUN/Creat Ratio 23.3 RATIO (10-20); Calcium,Total 8.7 mg/dL (8.5-10.1); Chloride 104 mmol/L (98-107); Cholesterol 214 mg/dL (200); Creatinine, Serum 1.16 mg/dL (0.70-1.30); EST Glomerular Filtration Rate 64 mL/min (>60); Est Glom Filt Rate - Afr Amer 78 mL/min (>60); Globulin 3.5 g/dL (2.2-4.2); Glucose 96 mg/dL (74-106); High Density Lipoprotein 65 mg/dL; PSA,Total- Diagnostic 0.07 ng/mL (0.0-4.0); Potassium 4.2 mmol/L (3.5-5.1); Sodium Level 139 mmol/L (136-145); Thyroid Stim Hormone (TSH) 2.18 uIU/mL (0.358-3.74); Triglycerides 121 mg/dL; Very Low Density Lipoprotein 24 mg/dL (5-40)
== END | disposition home or self-care (01) ==
LOC: LAB 12:53
PROVIDERS: PCP Internal Medicine; Referring Provider Urology; Visit Provider Urology
DX: C61 Malignant neoplasm of prostate (principal); E11.9 Type 2 diabetes mellitus without complications; I10 Essential (primary) hypertension; E78.00 Pure hypercholesterolemia, unspecified
CPT/HCPCS: 36415; 80053; 80061; 81001; 82043; 82570; 84153; 84443; 85025

== ENCOUNTER → 2024-09-09 | Outpatient (CLI) | payer MEDICARE, OTHER, SELFPAY ==
[2019-06-28 15:08] VITALS: BMI 28.3
[2024-09-09 11:05] LABS: Bacteria 0 SEEN /hpf (None Seen); Mucous, Urine 0 SEEN /hpf (<or=2+); Red Blood Cells-Urine 0 SEEN /hpf (0-5); Squamous Epithelial Cells - UA 0 SEEN /hpf (0-5); White Blood Cells 0 SEEN /hpf (0-5)
[2024-09-09 11:19] LABS: Color, Urine Yellow (Yellow); Glucose, Dipstick 250 mg/dl (Normal); Ketone-Dipstick Negative (Negative); Leukocyte Esterase-Dipstick Negative /ul (Negative); Nitrite-Dipstick Negative (Negative); Occult Blood-Urine Negative /ul (Negative); Protein-Dipstick Negative (Negative); Urine Bilirubin Dipstick Negative (Negative); Urine Clarity Clear (Clear); Urine Urobilinogen Normal (Normal)
[2024-09-09 11:23] LABS: Absolute Neutrophil Count 2.9 X10^3/uL (2.0-7.7); Basophil# 0.06 X10^3/uL; Basophil% 1.1 % (0-1); Eosinophils% 3.6 % (0-5); Hematocrit 41.2 % (40-54); Hemoglobin 13.4 g/dL (13.0-16.5); Lymphocyte % 32.1 % (19-41); Mean Corp Hgb Conc 32.5 g/dL (32-36); Mean Corpuscular Hgb 31.7 pg (27.0-32.0); Mean Corpuscular Volume 97.4 fL (80-94); Mean Platelet Vol. 9.5 fl (6.2-12.0); Monocyte# 0.66 X10^3/uL; Monocyte% 11.8 % (0-10); NRBC Flagged by Analyzer 0 % (0-5); Neutrophil # 2.87 X10^3/uL (2.7-7.7); Neutrophil % 51.2 % (47-70); Platelet Count 204 K/mm3 (150-450); RBC Distribution Width CV 13.1 % (11.6-14.6); RBC Distribution Width SD 46.9 fl (35.1-43.9); Red Blood Count 4.23 M/mm3 (4.6-6.2); White Blood Count 5.6 K/mm3 (4.4-11.0)
[2024-09-09 11:57] LABS: AST(SGOT) 17 U/L (15-37); Alanine Aminotransfer ALT/SGPT 18 U/L (16-61); Albumin, Serum 3.6 g/dL (3.2-5.0); Alkaline Phosphatase 44 U/L (45-117); Anion Gap 6 (5-15); BUN 26 mg/dL (7-18); Calcium,Total 9.3 mg/dL (8.5-10.1); Chloride 102 mmol/L (98-107); Cholesterol 211 mg/dL (200); Creatinine, Serum 1.13 mg/dL (0.70-1.30); EST Glomerular Filtration Rate 66 mL/min (>60); Est Glom Filt Rate - Afr Amer 80 mL/min (>60); Globulin 3.5 g/dL (2.2-4.2); Glucose 98 mg/dL (74-106); High Density Lipoprotein 58 mg/dL; Protein, Total 7.1 g/dL (6.4-8.2); Sodium Level 136 mmol/L (136-145); Triglycerides 193 mg/dL; Very Low Density Lipoprotein 39 mg/dL (5-40)
[2024-09-09 12:00] LABS: Hemoglobin A1c 5.9 % (3.8-5.6)
[2024-09-09 12:02] LABS: Microalbumin,Random Urine 6.9 mg/L (NO RANGE EST.); Microalbumin:Creatinine Ratio 7.5 mg/g CRE (<30 mg/g CRE)
[2024-09-09 12:53] LABS: Vitamin B12 464 pg/mL (211-911); Vitamin D,25 Hydroxy 68.2 ng/mL
== END | disposition home or self-care (01) ==
LOC: LAB 10:58
PROVIDERS: PCP Internal Medicine; Referring Provider Internal Medicine; Visit Provider Internal Medicine
DX: E11.9 Type 2 diabetes mellitus without complications (principal); E78.1 Pure hyperglyceridemia; D75.89 Other specified diseases of blood and blood-forming organs; I10 Essential (primary) hypertension
CPT/HCPCS: 36415; 80053; 80061; 81001; 82043; 82306; 82570; 82607; 83036; 84443; 85025

== ENCOUNTER → 2025-01-19 | Outpatient (CLI) | payer MEDICARE, OTHER, SELFPAY ==
[2019-06-28 15:08] VITALS: BMI 28.3
[2025-01-19 18:10] LABS: PSA,Total- Diagnostic 0.04 ng/mL (0.00-4.00)
== END | disposition home or self-care (01) ==
LOC: LAB 16:03
PROVIDERS: PCP Internal Medicine; Referring Provider Nurse Practitioner; Visit Provider Nurse Practitioner
DX: C61 Malignant neoplasm of prostate (principal)
CPT/HCPCS: 36415; 84153

== ENCOUNTER 2025-06-02 14:00 | Outpatient (RCR) | payer MEDICARE, OTHER, SELFPAY ==
[2019-06-28 15:08] VITALS: BMI 28.3
--- NOTE | 2025-05-01 15:47 | HP.PTEVAL_ITS ---
Patient's Visit Information Visit Information Visit Information: HAY JOHNSON is a 80 year old M referred to Physical Therapy by Dr. Amanda Cardoza DO with a diagnosis of Balance impairment. Date of Evaluation: 05/01/25 Physical Therapist: Demarcus Handley, TUANT, OCS, CSCS Visit Plan Frequency: 2x /Week Duration: 4-6 Weeks Plan: Biodex balance assessment then 2x/week for 2-4 weeks for 1. HS stretch to HEP 2. core strength to HEP 3. vestibular(foam OR ec ) to HEP 4. dynamic wieght shifting balance for turning and golf to HEP Emphasize getting to HEP for I Subjective Subjective: Dr. Cardoza sent for balance. H raised concerns. I notice that I have to be more careful. I won't go down an escalator. Turning quickly may throw him off balance. Using handrails alot. No falls. Maybe one time getting out of sandtrap. Has had to catch self. No cane or walker. No spinning but feels unsteady with quick turns. No neuropathy. Long time sitting may get L HS pain but no other pain and that has been there a while. Concerns with balance for a year or so. Plays golf regularly. No regular ex except walk and golf. Plays in [employer] in the winter. Activity: careful with ladders. Will not go on ladders. Retireed. Objective Objective: Walks into PT slowly but steady. hesitant to shift weight upon standing adn then does well. Trasnfer I without UE chair and bed. steps are reciprocal up without rail but needs it to descend or step to pattern. reflexes 2/3 patella and achilles Sensation LE WNL to gross light touch. coordination to reciprocal heel and gatica tap are good. strength hips 3+ abd and rot, and eext, and 4- flexion with core instability. knees and ankles 4+ HS max tight at -45 90/90 test. shifting weight on steps is poor and to step up onto foam catches foot. Balance/Special Test Scores Functional Gait Assessment Score: 25 % Disability: 16.6700 CATSIB Score (Max score 120 seconds): 100 Lower Extremity Functional Score: 60 Goals Goal 1:: I approp weight shifting, core sdtrength, HS stretch and vestibular balance ex via HEP Goal Time Frame: 4-6 Weeks Goal 2:: Pt feel 75% improvement in balance and steadiness with turning. Goal Time Frame: 4-6 Weeks Goal 3:: FGA to limit fallr isk and fear. Goal Time Frame: 4-6 Weeks Goal 4:: LEFS score 65 Goal Time Frame: 4-6 Weeks Rehabilitation Potential Physical Therapy Diagnosis: Balance hesitancy causing fear and QOL worries. Rehabilitation Potential: Good Anticipated Interventions Patient/Client Instruction: Educate patient on: Condition and Plan of Care For the Purpose of:: To improve muscle performance and motor function, To increase tolerance to activity/condition/position, To improve gait and locomotor functions and To improve safety Therapeutic Exercise to Include: Strength training, Balance training, Flexibilty training and Gait and locomotor training For the Purpose of:: To decrease pain, To improve nutrient delivery to tissue, To improve muscle performance and motor function, To increase tolerance to activity/condition/position, To improve ability of physical actions for home/community/work/leisure, To improve gait and locomotor functions and To improve safety Text: Thank you for the opportunity to evaluate your patient. For Medicare and Medicare HMO plans, please review the plan of care and approve it. It will need to be FAXED BACK to us at [phone] for Medicare purposes. For Medicare only, by signing this I certify the plan of care. Please let me know if there are questions or concerns regarding this plan of care. Physician Signature: Date:
--- NOTE | 2025-05-10 14:30 | HP.PTCOM ---
PT Communication Note 05/10/[address] Amanda Cardoza, DO , Thank you for the referral of Mr. Delgado to [facility] for balance assessment. I have enclosed a copy of the results for your review. In summation, Limits of stability test showed poor posterior weight shifting confidence. Mod CTSIB showed >1 Standard Deviation from norm on both eyes closed conditions and preference for Forward weight shifting. With these results in mind, we will proceed with his previously mentioned plan of care for 2x/week x 2-4 weeks to instruct in HEP to address these issues. Please contact me if there are questions. Sincerely, Demarcus Handley, DPT, OCS, CSCS Contact Information
--- NOTE | 2025-06-02 14:46 | HP.PTDCSUM ---
Discharge Summary D/C summary: It has been my pleasure to treat HAY JOHNSON referred by Dr. Amanda Cardoza DO, with the diagnosis of Balance impairment for a total of 6 visit(s). Discharge Date: 06/02/25 Please see the following information for a summary of their discharge status. Subjective Subjective: Better, Not wobbling as much. Still hard to walk. HEP going well at home. To doctor in the future. Acitvities: still avoids climbing ladders. Overall Improvement % Improvement: 50 Objective Objective/Function: FGA is +5 and very good for his age today. No concerns with pain or core strength. Pt wishes to continue via HEP which is more than appropriate. Goals Goal 1:: I approp weight shifting, core sdtrength, HS stretch and vestibular balance ex via HEP Goal Progress: Goal Met Goal 2:: Pt feel 75% improvement in balance and steadiness with turning. Goal Progress: 50% Goal 3:: FGA to limit fallr isk and fear. Goal Progress: Goal Met Goal 4:: LEFS score 65 Goal Progress: Progressing Plan Plan: d/c to HEP D/C Information d/c sentence: If there are questions or concerns regarding this patient's physical therapy, please feel free to call me at [phone]. Thank you for the referral of this patient. Sincerely, Demarcus Handley, DPT, OCS, CSCS Balance/Gait/Functional tests Balance/Special Test Scores Functional Gait Assessment Score: 30 % Disability: 0 CATSIB Score (Max score 120 seconds): 100 Lower Extremity Functional Score: 58 Improvement % Improvement: 50
== END 2025-06-02 19:00 | disposition home or self-care (01) ==
LOC: PT 14:00
PROVIDERS: PCP Internal Medicine; Referring Provider Internal Medicine; Visit Provider Internal Medicine
DX: R26.89 Other abnormalities of gait and mobility (principal)
CPT/HCPCS: 97110; 97161; 97164; 97750

== ENCOUNTER → 2025-08-22 | Outpatient (CLI) | payer MEDICARE, OTHER, SELFPAY ==
[2019-06-28 15:08] VITALS: BMI 28.3
[2025-08-22 10:35] LABS: Hematocrit 42.7 % (40-54); Hemoglobin 13.6 g/dL (13.0-16.5); Immature Granulocytes Count 0.010 X10^3/uL (0.0-0.0); Mean Corp Hgb Conc 31.9 g/dL (32-36); Mean Corpuscular Volume 97.7 fL (80-94); Mean Platelet Vol. 9.7 fl (6.2-12.0); NRBC Flagged by Analyzer 0 % (0-5); Platelet Count 217 K/mm3 (150-450); RBC Distribution Width CV 12.8 % (11.6-14.6); RBC Distribution Width SD 45.5 fl (35.1-43.9); Red Blood Count 4.37 M/mm3 (4.6-6.2); White Blood Count 5.7 K/mm3 (4.4-11.0)
[2025-08-22 11:27] LABS: AST(SGOT) 24 U/L (<=37); Alanine Aminotransfer ALT/SGPT 17 U/L (<=46); Albumin, Serum 4.2 g/dL (3.4-4.8); Alkaline Phosphatase 43 U/L (40-129); Anion Gap 11 (5-15); BUN 29 mg/dL (4-19); BUN/Creat Ratio 25.1 RATIO (10-20); Calcium,Total 9.3 mg/dL (7.6-11.0); Carbon Dioxide 25.9 mmol/L (21.0-32.0); Chloride 101 mmol/L (98-108); Cholesterol 223 mg/dL (<=200); Globulin 2.7 g/dL (2.2-4.2); Glucose 92 mg/dL (70-99); Low Density Lipoprotein Calc. 121 mg/dL; Potassium 4.5 mmol/L (3.3-5.1); Triglycerides 247 mg/dL; Very Low Density Lipoprotein 49 mg/dL (5-40); cholesterol:hdl ratio screen 4.20
[2025-08-22 12:11] LABS: Creatinine, Urine (random) 72.70 mg/dL (39.00-259.00); Microalbumin,Random Urine < 12.0 mg/L (<20 mg/L)
[2025-08-22 13:51] LABS: Mucous, Urine 0 SEEN /hpf (<or=2+); Red Blood Cells-Urine 0 SEEN /hpf (0-5); Squamous Epithelial Cells - UA 0 SEEN /hpf (0-5)
[2025-08-22 14:10] LABS: Color, Urine Yellow (Yellow); Glucose, Dipstick 250 mg/dl (Normal); Ketone-Dipstick Negative (Negative); Leukocyte Esterase-Dipstick Negative /ul (Negative); Nitrite-Dipstick Negative (Negative); Occult Blood-Urine Negative /ul (Negative); Protein-Dipstick Negative (Negative); Specific Gravity, Urine 1.020 (1.002-1.030); Urine Bilirubin Dipstick Negative (Negative)
== END | disposition home or self-care (01) ==
LOC: LAB 10:08
PROVIDERS: PCP Internal Medicine; Referring Provider Internal Medicine; Visit Provider Internal Medicine
DX: E11.9 Type 2 diabetes mellitus without complications (principal); E78.00 Pure hypercholesterolemia, unspecified
CPT/HCPCS: 36415; 80053; 80061; 81001; 82043; 82570; 84443; 85025